=== PATIENT | female | born 2000 | race Two or more races ===

== ENCOUNTER 2022-08-25 14:27 | Inpatient (IN) | payer OTHER ==
[~2022-08-25] VITALS: Ht 162.6 cm; Wt 86.6 kg
[2022-08-25] MEDS ORDERED: PRENATAL TABLE1 EAC4 PO (15:00)
[2022-08-25] MEDS ORDERED: IRON325 MG PO (15:01)
== END 2022-08-28 12:00 | disposition home or self-care (01) | DRG 788 ==
LOC: OB/GYN 14:27 → LDR 14:27 → OB/GYN 18:37
PROVIDERS: ADMIT Specialist; ATTEND Specialist
PROC: 4A1HXCZ Monitoring of Products of Conception, Cardiac Rate, External Approach (ICD-10-PCS; 2022-08-25)
PROC: 10D00Z1 Extraction of Products of Conception, Low, Open Approach (ICD-10-PCS; principal; 2022-08-25 18:00)
DX: O69.0XX0 Labor and delivery complicated by prolapse of cord, not applicable or unspecified (principal); O32.3XX0 Maternal care for face, brow and chin presentation, not applicable or unspecified; Z3A.38 38 weeks gestation of pregnancy; Z37.0 Single live birth; Z20.822 Contact with and (suspected) exposure to COVID-19